=== PATIENT | male | born 1965 | race African-American/Black ===

== ENCOUNTER 2019-10-25 06:14 | Day surgery (SDC) | payer BC ==
[2019-10-24 12:08] VITALS: BMI 34.5
[2019-10-25] MEDS ORDERED: MIDAZOLAM HCL 2 MG/2 ML SINGLE DOSE VIAL ONE ×3 (06:43→11:04)
[2019-10-25] MEDS ORDERED: ROPIVACAINE HCL 0.5% 30ML VIAL ONE (06:43)
[2019-10-25] MEDS ORDERED: EPINEPHrine 1:1,000 1 MG/1 ML - 30ML VIAL (INJECTION) ONE (07:20)
--- NOTE | 2019-10-25 07:37 | HP ---
History & Physical Update - History History: No Change - Physical Physical: No Change - Assessment Assessment: No Change - Plan Plan: No Change
[2019-10-25] MEDS ORDERED: PROPOFOL 20 ML ONE ×10 (07:51→11:02)
[2019-10-25] MEDS ORDERED: BUPIVACAINE HCL/PF 2.5 MG/ML - 30 ML VIAL IJ ONE (08:27)
[2019-10-25] MEDS ORDERED: BUPIVACAINE HCL/PF 0.25% (2.5MG/ML) 10 ML VIAL IJ ONE ×2 (08:32→11:00)
[2019-10-25] MEDS ORDERED: SUCCINYLCHOLINE CHLORIDE 200 MG/10 ML SYRINGE ONE (09:32)
--- NOTE | 2019-10-25 12:22 | OPR ---
Date of Procedure:10/25/2019 Procedure: Left Shoulder- 1. Diagnostic arthroscopy. 2. Arthroscopic extensive debridement of glenohumeral joint (47557). 3. Arthroscopic subacromial decompression (29854). 4. Arthroscopic rotator cuff repair: Supraspinatus (96366). 5. Arthroscopic-assisted biceps tenodesis-subpectoral (16580). Preoperative Diagnoses: 1. Rotator cuff tear: Supraspinatus. 2. Biceps tendon degeneration. 3. Glenohumeral synovitis. 4. Subacromial bursitis. Postoperative Diagnoses: 1. Rotator cuff tear: Supraspinatus, Infraspinatus. 2. Biceps tendon degeneration and tear. 3. Labral degeneration and fraying; SLAP tear. 4. Chondromalacia of the glenohumeral joint. 5. Glenohumeral synovitis. 6. Subacromial bursitis and adhesions. Surgeon: Luis Graf DO Assistants: Neel Sherwood DO Anesthesia: IV regional with interscalene nerve block, sedation, and 0.25% Bupivacaine local superficial field. Estimated Blood Loss: Minimal Drains: None Total IV Fluids: Per anesthesia record Specimens: None Implants: [employer] 5.5mm Healicoil PEEK anchor, triple loaded (x 3); 1.9mm SutureFix, double loaded Complications: None Disposition: PACU Condition: Hemodynamically stable Indications: Efrain Perrin presented to us with chronic left shoulder pain that failed conservative measures. His symptoms, signs, and imaging were consistent with the above noted diagnoses. He ultimately elected to proceed with surgical intervention after discussion of the risks, benefits, alternatives. We discussed risks including but not limited to, bleeding, pain, infection, scarring, damage to neurovascular structures, blood clots, pulmonary embolus, need for additional surgery, incomplete relief of pain, and incomplete return of function. He expressed understanding and wished to proceed. He underwent preoperative medical evaluation clearance and optimization prior to surgery. Procedure Details: He was identified in the preoperative area. The left shoulder was marked as the operative site and consent was completed and confirmed. He regional block was performed by a member of the anesthesia team. He was later transferred to the operating room and placed in supine position the operating room. General anesthesia was induced without difficulty. He was repositioned into beach chair with all bony prominences appropriately padded. The neck was in neutral alignment. A surgical time-out was performed identifying the correct patient, procedure, and site. Antibiotics were given within 1 hour prior to surgical incision. The upper extremity was prepped and draped in standard sterile fashion. Examination under anesthesia: Passive range of motion of the left shoulder showed forward elevation of 170, abduction 100, external rotation at side 45 , SABER 90, SABIR 40. This was compared to her contralateral shoulder which shows forward elevation of 170, abduction 100 external rotation at side 60, SABER 90, SABIR 40. Diagnostic arthroscopy: We began the procedure with the standard posterolateral portal, entered the glenohumeral joint, and an anterior portal was made within the rotator cuff interval under direct visualization with the assistance of a spinal needle. A probe was used to assist with diagnostic arthroscopy and we visualized from both posteriorly and anteriorly. Evaluation of the glenohumeral joint showed moderate synovitis anteriorly and superiorly. The superior labrum had a degenerative tear that was debrided back to a stable base. The anterior labrum was probed and found to be frayed. The posterior labrum was probed and found to be intact. There were no loose bodies in the inferior pouch. There was no HAGL lesion. The biceps tendon showed hyperemia. The rotator cuff interval was scarred. The axillary recess was empty. The subscapularis was probed and found to be intact. The supraspinatus and a portion of the infraspinatus were found to be torn from the greater tuberosity. The articular surface of the remaining infraspinatus and teres minor tendons were intact. The glenoid and humeral head showed areas of grade II chondromalacia superiorly with no significant chondral defects. Evaluation of the subacromial space showed moderate bursitis and significant adhesions. There was a small acromial spur anteriorly. There was fraying of the CA ligament. The AC joint was intact. The rotator cuff was found to be torn from the tuberosity in an L shaped pattern. Arthroscopic extensive debridement of the glenohumeral joint: We used a combination of the arthroscopic motorized shaver and radiofrequency device to perform an extensive debridement inside the glenohumeral joint anteriorly and posteriorly. The hyperemia, erythema, and synovitis of the joint and joint capsule was aggressively debrided both anteriorly and posteriorly. Synovitic fronds were thermally ablated. Chondral degeneration was debrided to a stable edge. Labral fraying and degeneration was also resected and debrided to a stable edge anteriorly. The biceps tendon was tenotomized as it inserted into the superior labral complex and the remaining portion of the biceps tendon was allowed to retract into the bicipital groove for later tenodesis. We used the radiofrequency device to ablate and remove the scar tissue starting with the rotator cuff interval. We stayed lateral to the labrum, released the scar to the lateral surface of the coracoid, and then proceeded more laterally across the rotator interval, ablating the scar tissue all the way to the biceps young region. The subscapularis tendon was identified and carefully protected. The scar above it including the ligaments and capsular tissue was ablated just lateral to the labral margin and the scar tissue was resected. Arthroscopic-assisted biceps tenodesis: We made a 2.5 cm incision along Shannen' s lines in the axillary fold. Sharp dissection was carried out down to the level of the pectoralis major. The plane between the pectoralis major and the short head of biceps tendon was developed bluntly down to the level of the humeral bone, where we identified the long head of biceps tendon and delivered it retrograde out of the wound. The underlying soft tissue was resected and the bone was frayed with a 1/4-inch osteotome. We then selected a 1.9 SutureFix anchor and placed the anchor high within the bicipital groove underneath the pectoralis major tendon. The sutures were then passed just proximal to the musculotendinous junction of the long head of biceps in an alternating simple versus lasso loop configuration. Tying these sutures down tenodesed the tendon onto the underlying frayed humeral bone. We used an arthroscopic knot pusher to get excellent knot fixation, and then arthroscopic gamb cutter to cut the remaining length of the suture. The remaining length of the biceps tendon was resected. We confirmed our arthroscopic knots and position of the biceps tendon underneath the pectoralis major with the arthroscope. We thoroughly irrigated the wound. Arthroscopic subacromial decompression: The subacromial space was entered from posteriorly. A separate anterior-lateral portal and posterior-lateral portal were made for additional instrumentation and visualization. We then visualized the rotator cuff pattern as noted above, and performed our subacromial decompression in a systematic fashion from anterior to posterior and from lateral to medial, removing the bursal tissue carefully. This was done with a radiofrequency device and motorized shaver. The undersurface of the acromion was skeletonized and gently debrided to a flat smooth undersurface. Arthroscopic rotator cuff repair: We turned our attention to rotator cuff repair of the supraspinatus and infraspinatus. We debrided the remnant tissue over the greater tuberosity and debrided frayed tissue from the rotator cuff tendon edge. The supraspinatus tendon was retracted and scarred to the level of the joint line. We debrided the greater tuberosity with a motorized shaver to slightly decorticate it, preparing a bony bed to receive the rotator cuff tendon. We used three triple-loaded 5.5 mm [employer] PEEK helicoil anchor for repair of the rotator cuff and these were placed just lateral to the articular margin. We unloaded one of the sutures from the posterior anchor since this was not felt to be needed for fixation. It had excellent fixation within the bone. The sutures from the anchor were then passed through the supraspinatus and infraspinatus with the tissue-piercing Firstpass, approximately 1.5 cm from its torn edge in simple suture configuration. Sutures were then shuttled appropriately through the cannulas and arthroscopic knots were tied with a knot pusher. This achieved good fixation of the rotator cuff into the greater tuberosity with good compression of the rotator cuff into the the tuberosity footprint from medial to lateral. We promoted some localized bone bleeding and marrow elements with an awl in the lateral aspect of the greater tuberosity. We thoroughly irrigated the subacromial space and we removed the arthroscopic equipment. We thoroughly irrigated the wounds. Wound closure: The arthroscopic portal incisions were closed with 3-0 Monocryl subcuticular stitch with Steri strips. The axillary incision was closed with 2- 0 Vicryl, 3-0 Monocryl subcuticular stitch, and Dermabond skin glue. The shoulder was sterilely dressed and placed in a shoulder immobilizer. Post-operative Details: I spoke with the family regarding the operation after surgery. Postoperative rehabilitation: Arthroscopic rotator cuff repair protocol. The patient will remain in a shoulder immobilizer for 6 weeks. Early passive range of motion okay with no limits and advance as tolerated; no pendulums. No strengthening for at least 5 months. Attestation for first assistant manager: Dr. Neel Sherwood acted as the first assistant manager. There was no qualified resident or physician patient support assistant available to do so. I was present for surgical time out and all arrieta and critical portions of the case.
[2019-10-25] MEDS ORDERED: ONDANSETRON 4 MG/2 ML VIAL IVPUSH PRN (12:25)
[2019-10-25] MEDS ORDERED: oxyCODONE HCL 5 MG TABLET PO PRN ×2 (12:25)
[2019-10-25] MEDS ORDERED: PROMETHAZINE HCL 25 MG/1 ML VIAL IVPUSH PRN (12:25)
--- NOTE | 2019-10-25 12:52 | OP ---
Operative Note - Note: Operative Date: 10/25/19 (Brief Operative Note) Pre-Operative Diagnosis: Left shoulder rotator cuff tear, biceps tendonitis, bursitis, synovitis Operation: Left shoulder arthroscopy, rotator cuff repair, biceps tendodesis, debridement, subacromial decompression Findings: see op report Implants: see op report Post-Operative Diagnosis: Same as Pre-op (Rotator cuff tear: Supraspinatus, Infraspinatus; Glenohumeral joint chondromalacia; Synovitis; Biceps degeneration ; Labral degeneration and fraying; SLAP tear; Subacromial bursitis and adhesions ) Surgeon: Luis Graf Submarine Element Coordinator: Neel Sherwood Anesthesia: General (with interscalene regional block) Estimated Blood Loss (mls): 5 Instrument used (Debridements only): see op report Drains & Tubes with Location: none Operative Report Dictated: Yes
[2019-10-25 13:20] VITALS: TEMP 97.8
[2019-10-25 14:23] VITALS: BP 133/90; PULSE 62
--- NOTE | 2019-10-29 15:42 | PATH ---
Surgical Pathology Report Patient Name: ROSARIO AVINA Med. Rec. #: [id number] /Age/Gender: 1965 (Age: 54) / M Account: [id number] Location: [facility] Taken: 10/25/2019 Received: 10/25/2019 Reported: 10/29/2019 Physicians: Luis Graf DO Specimen(s) Received A: SHAVINGS LEFT SHOULDER B: BICEPS TENDON LEFT Clinical History Left shoulder rotator cuff tear Final Diagnosis A. SHOULDER, LEFT, ARTHROSCOPIC SHAVINGS: FIBROSYNOVIAL AND FIBROCARTILAGINOUS TISSUE. B. BICEPS TENDON, LEFT, REPAIR : FIBROCOLLAGENOUS TISSUE, CONSISTENT WITH TENDON. Electronically Signed Laura Gambino M.D. Gross Description A. Received in formalin labeled "left shoulder shavings," is a 3.0 x 2.4 x 0.3 cm aggregate of pepe-yellow soft tissue fragments. The formalin is filtered and the specimen is entirely submitted in one cassette. B. Received in formalin labeled "biceps tendon left," is a 6.0 x 0.8 x 0.3 cm pepe portion of fibrous tissue, consistent with a portion of tendon. Director Of Recruitment sections are submitted in one cassette. 10/28/201910/28/2019
== END 2019-10-25 14:25 | disposition home or self-care (01) ==
LOC: FASU 06:14
PROVIDERS: ATTEND Orthopaedic Surgery
PROC: 0RNK4ZZ Release Left Shoulder Joint, Percutaneous Endoscopic Approach (ICD-10-PCS; 2019-10-25)
PROC: 0RBK4ZZ Excision of Left Shoulder Joint, Percutaneous Endoscopic Approach (ICD-10-PCS; 2019-10-25)
PROC: 0LQ24ZZ Repair Left Shoulder Tendon, Percutaneous Endoscopic Approach (ICD-10-PCS; principal; 2019-10-25 08:32)
PROC: 0LS24ZZ Reposition Left Shoulder Tendon, Percutaneous Endoscopic Approach (ICD-10-PCS; 2019-10-25 08:32)
DX: M75.122 Complete rotator cuff tear or rupture of left shoulder, not specified as traumatic (principal); S46.212A Strain of muscle, fascia and tendon of other parts of biceps, left arm, initial encounter; S43.432A Superior glenoid labrum lesion of left shoulder, initial encounter; M94.212 Chondromalacia, left shoulder; M65.812 Other synovitis and tenosynovitis, left shoulder; M75.52 Bursitis of left shoulder; X58.XXXA Exposure to other specified factors, initial encounter; Y93.9 Activity, unspecified; Y92.9 Unspecified place or not applicable
CPT/HCPCS: 88304-TC; 94760